=== PATIENT | male | born 1940 | race Caucasian/White ===

== ENCOUNTER 2019-07-08 16:45 | Emergency (ER) | payer MEDICARE, OTHER ==
[~2019-07-08] VITALS: Ht 175.3 cm; Wt 88.1 kg
[~2019-07-08 16:45] MED LIST: ACET325T14 PO; BENA20TA54 PO; FENO54TA17 PO; HEPA50002 SQ; HYDR-3237 PO; LOSA25TA25 PO; LOVA10TA PO; LOVA40TA2 PO; SENN-177 PO; TRIA15CR53 TP; VALP250C59 PO
--- NOTE | 2019-07-08 17:25 | NUR ---
EKG DONE AT THIS TIME
--- NOTE | 2019-07-08 17:29 | NUR ---
PT TO CT
[2019-07-08 17:31] LABS: ALBUMIN 4.3 g/dL (3.4-5.0); ANION GAP 9 mmol/L (5-15); CALCIUM 9.4 mg/dL (8.5-10.1); CHLORIDE 111 mmol/L (98-107); CREATININE 1.67 mg/dL (0.7-1.3)
[2019-07-08 17:34] LABS: BASOPHILS # (AUTO) 0.02 x10^3/uL (0-0.1); BASOPHILS % (AUTO) 0 % (0-1); EOSINOPHILS # (AUTO) 0.17 x10^3/uL (0-0.4); EOSINOPHILS % (AUTO) 2 % (1-7); LYMPHOCYTES # (AUTO) 2.11 x10^3/uL (1-3.4); LYMPHOCYTES % (AUTO) 23 % (22-44); MD NO; MEAN CORPUSCULAR HGB CONC 34.1 g/dL (33.2-36.2); MEAN CORPUSCULAR VOLUME 90.9 fL (81-97); MEAN PLATELET VOLUME 8.6 fL (7.4-10.4); MONOCYTES # (AUTO) 0.54 x10^3/uL (0.2-0.8); MONOCYTES % (AUTO) 6 % (2-9); NEUTROPHILS # (AUTO) 6.37 x10^3/uL (1.8-6.8); NEUTROPHILS % (AUTO) 69 % (42-75); PLATELET COUNT 254 x10^3/uL (130-400); RED BLOOD COUNT 5.18 x10^6/uL (4.38-5.82); RED CELL DISTRIBUTION WIDTH 14.1 % (9.4-14.8)
--- NOTE | 2019-07-08 17:50 | NUR ---
ALL RESULTS BACK AT THIS TIME, CHART UP FOR RECHECK
[2019-07-08] MEDS ORDERED: METOPROLOL TARTRATE 50 MG TABLET ONE (18:26)
[2019-07-08] MEDS ORDERED: METOPROLOL TARTRATE 50 MG TABLET PO ONE (18:30)
--- NOTE | 2019-07-08 19:07 | NUR ---
PT UP TO RESTROOM WITH STEADY GAIT. NO ASSISTANCE NEEDED. VAs COMPLETED. PT WEARING GLASSES USED FOR DISTANCE 20/100 IN BOTH EYES HOWEVER ABLE TO SEE SMALL PRINT ON TV FROM ACROSS ROOM. MD TO BE UPDATED.
--- NOTE | 2019-07-08 19:15 | NUR ---
UPDATED, CALL OUT TO [facility]. AWAITING RECHECK AND DISPO. CALL LIGHT WITHN REACH. VSS AT THIS TIME, WILL CONTINUE TO MONITOR
[2019-07-08 19:16] VITALS: BP 160/81
== END 2019-07-08 20:03 | disposition home or self-care (01) ==
LOC: ED 19:30
DX: H53.8 Other visual disturbances (principal); F17.200 Nicotine dependence, unspecified, uncomplicated; I10 Essential (primary) hypertension; E78.00 Pure hypercholesterolemia, unspecified; R53.1 Weakness
CPT/HCPCS: 36415; 70450; 80048; 82040; 85025; 93005; 99284

== ENCOUNTER → 2020-02-14 | Outpatient (CLI) | payer MEDICARE | END | disposition home or self-care (01) | LOC: RAD 14:13 | PROVIDERS: ATTEND Family Medicine | DX: M51.36 Other intervertebral disc degeneration, lumbar region (principal); M48.061 Spinal stenosis, lumbar region without neurogenic claudication | CPT/HCPCS: 72110 ==

== ENCOUNTER 2021-06-23 06:36 | Day surgery (SDC) | payer MEDICARE ==
[2021-06-21 12:15] LABS: ALBUMIN 4.2 g/dL (3.4-5.0); ANION GAP 6 mmol/L (5-15); CALCIUM 10.2 mg/dL (8.5-10.1); CHLORIDE 109 mmol/L (98-107)
[2021-06-21 12:18] LABS: ALANINE AMINOTRANSFERASE 20 U/L (12-78); ALKALINE PHOSPHATASE 48 U/L (45-117); BILIRUBIN,TOTAL 0.8 mg/dL (0.2-1.0); CREATININE 1.79 mg/dL (0.7-1.3); TOTAL PROTEIN 7.6 g/dL (6.4-8.2)
[2021-06-21 12:22] LABS: BASOPHILS % (AUTO) 0 % (0-1); EOSINOPHILS % (AUTO) 1 % (1-7); LYMPHOCYTES % (AUTO) 25 % (22-44); MEAN CORPUSCULAR HGB CONC 34.4 g/dL (33.2-36.2); MEAN PLATELET VOLUME 9.1 fL (7.4-10.4); MONOCYTES % (AUTO) 6 % (2-9); NEUTROPHILS % (AUTO) 67 % (42-75); PLATELET COUNT 235 x10^3/uL (130-400); RED BLOOD COUNT 5.04 x10^6/uL (4.38-5.82); RED CELL DISTRIBUTION WIDTH 14.2 % (9.4-14.8)
[~2021-06-23] VITALS: Ht 176.5 cm; Wt 79.8 kg
[~2021-06-23 06:36] MED LIST changes: +ASPI81TA45 PO; +BENA40TA3 PO; +CLON0.1T22 PO; +DILT-88 PO; +ERGO500017 PO; +HYDR12.517 PO; +LOVA20TA2 PO; +METO25TA91 PO; +THIA100T27 PO
[2021-06-23] MEDS ORDERED: CHLORHEXIDINE 15 ML UDC PO ONE (07:30)
[2021-06-23] MEDS ORDERED: LACTATED RINGERS 1,000 ML IV SCH (07:30)
[2021-06-23 07:40] VITALS: BP 138/77
[2021-06-23] MEDS ORDERED: GLYCOPYRROLATE 0.2MG/1ML, 5ML ONE (08:14)
[2021-06-23] MEDS ORDERED: ROCURONIUM 10MG/ML,5ML ONE (08:14)
[2021-06-23] MEDS ORDERED: PROPOFOL 10 MG/ML, 20ML ONE (08:14)
[2021-06-23] MEDS ORDERED: FENTANYL PF 250 MCG/5ML ONE (08:14)
[2021-06-23] MEDS ORDERED: CEFAZOLIN 1,000 MG ONE (08:14)
[2021-06-23] MEDS ORDERED: NEOSTIGMINE 1 MG/ML, 10ML ONE (08:14)
[2021-06-23] MEDS ORDERED: SUGAMMADEX 200 MG/2 ML IVPush ONE (08:59)
[2021-06-23] MEDS ORDERED: BUPIVACAINE/PF 0.5% ONE (09:06)
[2021-06-23] MEDS ORDERED: morphine SULFATE 10 MG/ML, 1ML IVPush PRN (09:30)
[2021-06-23] MEDS ORDERED: HYDROmorphone 1 MG/ML, 1ML INJ IVPush PRN (09:30)
[2021-06-23] MEDS ORDERED: FENTANYL PF 100 MCG/2ML IV PRN (09:30)
[2021-06-23] MEDS ORDERED: hydrALAzine 20 MG/ML, 1ML IV PRN (09:30)
[2021-06-23] MEDS ORDERED: OXYcodone 5 MG/5 ML ORAL.SOL UDC PO PRN (09:30)
[2021-06-23] MEDS ORDERED: LABETALOL 5MG/ML, 20ML IV PRN (09:30)
[2021-06-23] MEDS ORDERED: MEPERIDINE/PF 25MG/0.5ML IVPush PRN (09:30)
[2021-06-23] MEDS ORDERED: ONDANSETRON 2MG/ML, 2ML IVPush PRN (09:30)
[2021-06-23] MEDS ORDERED: ACETAMINOPHEN 325 MG TABLET PO PRN (09:30)
[2021-06-23] MEDS ORDERED: OXYC1TAB12 PO (10:34)
[2021-06-23] MEDS ORDERED: FENTANYL PF 100 MCG/2ML ONE (11:04)
[2021-06-23] MEDS ORDERED: hydrALAzine 20 MG/ML, 1ML ONE (11:05)
== END 2021-06-23 12:40 | disposition home or self-care (01) ==
LOC: OUT 06:36
PROVIDERS: ATTEND Surgery
DX: K40.90 Unilateral inguinal hernia, without obstruction or gangrene, not specified as recurrent (principal); I12.9 Hypertensive chronic kidney disease with stage 1 through stage 4 chronic kidney disease, or unspecified chronic kidney disease; N18.9 Chronic kidney disease, unspecified; F17.210 Nicotine dependence, cigarettes, uncomplicated; Z88.1 Allergy status to other antibiotic agents; Z88.2 Allergy status to sulfonamides; Z88.0 Allergy status to penicillin; Z88.3 Allergy status to other anti-infective agents; Z79.899 Other long term (current) drug therapy; Z79.82 Long term (current) use of aspirin
CPT/HCPCS: 36415; 49650; 71046; 80053; 85025; 93005; C1781; J0360; J0690; J2704; J2710; J3010; J7120